=== PATIENT | female | born 1970 | race Caucasian/White ===

== ENCOUNTER 2019-02-08 15:33 | Emergency (ER) | payer OTHER, SELFPAY ==
[~2019-02-08] VITALS: Ht 160 cm; Wt 99.8 kg
[2019-02-08 16:43] VITALS: BP 126/83
[2019-02-08] MEDS ORDERED: DECADRON IM STA (16:53)
--- NOTE | 2019-02-08 17:01 | ER.PDOC ---
General Chief Complaint: Cough/Congestion Stated Complaint: CHILLS,SORE THROAT,FEVER Time seen by MD: 15:55 Source: patient Exam Limitations: no limitations History of Present Illness Initial Comments sinus drainage, fever Associated Symptoms: fever/chills, sinus pain/drainage Constitutional: fever EENTM: nose congestion Respiratory: no symptoms reported Cardiovascular: no symptoms reported Skin: no symptoms reported All Other Systems: Reviewed and Negative Past Medical History Medical History: asthma, hypertension, thyroid disease Surgical History: cholecystectomy, gastric bypass Social History Alcohol Use: none Drug Use: none Physical Exam General Appearance: alert Ear: TM erythema Nose: purlent nasal draingage Neck: nml inspection Respiratory: no resp.distress CVS: reg rate & rhythm Skin: color nml, no rash NEURO/PSYCH: oriented x 3 Results/Orders Results/Orders Orders - ARACELI RAMIREZ NP Dexamethasone Sodium Phosphate (Decadron (02/08/19 16:53) Vital Signs Date Time Temp Pulse Resp B/P (MAP) Pulse Ox O2 Delivery O2 Flow Rate FiO2 02/08/19 16:43 97.8 61 14 126/83 (97) 99 Room Air 02/08/19 16:40 97.8 61 14 99 Departure Time of Disposition: 17:05 Disposition: 01 HOME, SELF-CARE Impression: Primary Impression: Acute respiratory infection Additional Impression: Otitis media Condition: Stable Patient Instructions: Upper Respiratory Infection, Adult, [id number] Additional Instructions: Return if symptoms worsen . See PCP as needed Duration or Time Spent with Pa: 15 minutes Return to Work/School Can a patient return to work?: No Can a patient return to school: No Problem Qualifiers ARACELI RAMIREZ NP Feb 08, 2019 17:01
[2019-02-08] MEDS ORDERED: AMOX500C PO (17:03)
== END 2019-02-08 17:09 | disposition home or self-care (01) ==
LOC: ER 15:33
DX: H66.90 Otitis media, unspecified, unspecified ear (principal); J06.9 Acute upper respiratory infection, unspecified; E07.9 Disorder of thyroid, unspecified; I10 Essential (primary) hypertension; J45.909 Unspecified asthma, uncomplicated; Z90.49 Acquired absence of other specified parts of digestive tract; Z98.84 Bariatric surgery status
CPT/HCPCS: 96372; 99283